=== PATIENT | male | born 1965 | race Caucasian/White ===

== ENCOUNTER 2016-10-29 18:54 | Emergency (ER) | payer MEDICARE, MEDICAID, OTHER ==
--- NOTE | 2016-10-30 06:01 | ER ---
ADMIT: 10/29/2016 RM/LOC: ER [facility] MR#: [id number] [facility] [id number] [place], [place] [id number] ANGELO NATASHA [address] [place] [address] Emergency Room Report SEX: M AGE: 51 : 1965 DATE: 10/29/2016 The patient is a 51-year-old, [place]-speaking male, complaining of right earache for the past two or three days with discharge. Denies any fever or prior history of otitis externa. Exam remarkable for nontoxic, afebrile male with marked external otitis with discharge, right mastoid slightly tender, treated with Toradol, Dilaudid, and Reglan with improvement. Ear wick, Ciprodex 5 drops b.i.d. x5 days, Augmentin 875 b.i.d. x10 days, hydrocodone 5/325 one to two q.i.d. #30+ 6. Remove ear wick one week. Follow up [facility] as needed. Raffaele Syed MD/ romeo JOB #: [id number] CC: Derick Villafuerte MD, Attending Physician Marcelino Millard MD, Family Physician . [facility]
== END 2016-10-29 20:20 | disposition home or self-care (01) ==
LOC: ER 18:54
DX: H60.91 Unspecified otitis externa, right ear (principal); E11.9 Type 2 diabetes mellitus without complications; F17.210 Nicotine dependence, cigarettes, uncomplicated; Z79.4 Long term (current) use of insulin